=== PATIENT | female | born 2000 | race Caucasian/White ===

== ENCOUNTER 2021-10-30 03:04 | Emergency (ER) | payer OTHER ==
[2021-10-30 03:40] LABS: HEMOGLOBIN 13.6 gm/dl (12.3-15.3); RED BLOOD COUNT 4.75 M/UL (4.00-5.10); WHITE BLOOD COUNT 9.2 K/UL (4.5-11.0)
[2021-10-30 04:12] LABS: BUN/CREATININE RATIO 20 (0-10)
== END 2021-10-30 09:29 | disposition home or self-care (01) ==
LOC: ER1 03:04
PROVIDERS: Physician Assistant
DX: O99.891 Other specified diseases and conditions complicating pregnancy (principal); R31.9 Hematuria, unspecified; Z3A.01 Less than 8 weeks gestation of pregnancy; Z88.0 Allergy status to penicillin; Z88.2 Allergy status to sulfonamides
CPT/HCPCS: 76775; 76817; 80053; 81001; 84702; 84703; 85025; 87086; 96374; 99284; J2765

== ENCOUNTER 2021-11-10 10:44 | Emergency (ER) | payer SELFPAY ==
[2021-11-10 13:05] LABS: HEMOGLOBIN 13.4 gm/dl (12.3-15.3); RED BLOOD COUNT 4.69 M/UL (4.00-5.10); WHITE BLOOD COUNT 12.4 K/UL (4.5-11.0)
[2021-11-10 13:20] LABS: BUN/CREATININE RATIO 24 (0-10)
[2021-11-10] MEDS ORDERED: HYDROCODON-ACE1 EAC4 PO (17:33)
[2021-11-10] MEDS ORDERED: FLOMAX 0.4 MG0.4 MG PO (17:36)
[2021-11-10] MEDS ORDERED: ONDANSETRON ODT4 MG SL (17:36)
== END 2021-11-10 18:05 | disposition home or self-care (01) ==
LOC: ER1 10:44
PROVIDERS: Physician Assistant
DX: O23.01 Infections of kidney in pregnancy, first trimester (principal); N13.6 Pyonephrosis; Z3A.01 Less than 8 weeks gestation of pregnancy; Z91.040 Latex allergy status; Z88.0 Allergy status to penicillin; Z88.2 Allergy status to sulfonamides
CPT/HCPCS: 74018; 76775; 80053; 81001; 83690; 84702; 85025; 87086; 96374; 96375; 99284; J2270; J2405

== ENCOUNTER 2022-04-09 18:52 | Outpatient (CLI) | payer OTHER ==
[~2022-04-09 18:52] MED LIST: FLOMAX 0.4 MG0.4 MG PO; HYDROCODON-ACE1 EAC4 PO; ONDANSETRON ODT4 MG SL
== END 2022-04-09 22:44 | disposition home or self-care (01) ==
LOC: GENOP 18:52
DX: O99.891 Other specified diseases and conditions complicating pregnancy (principal); M54.50 Low back pain, unspecified; O47.03 False labor before 37 completed weeks of gestation, third trimester; Z3A.28 28 weeks gestation of pregnancy
CPT/HCPCS: 81001; 82731; G0463

== ENCOUNTER 2022-05-10 11:58 | Outpatient (CLI) | payer OTHER ==
[2022-05-10 13:01] LABS: HEMOGLOBIN 11.2 gm/dl (12.3-15.3); WHITE BLOOD COUNT 7.6 K/UL (4.5-11.0)
[2022-05-10 13:32] LABS: BUN/CREATININE RATIO 11 (0-10)
== END 2022-05-10 13:35 | disposition home or self-care (01) ==
LOC: GENOP 11:58
PROVIDERS: Obstetrics & Gynecology
DX: O99.891 Other specified diseases and conditions complicating pregnancy (principal); R10.9 Unspecified abdominal pain; R07.81 Pleurodynia; R19.7 Diarrhea, unspecified; Z3A.32 32 weeks gestation of pregnancy
CPT/HCPCS: 36415; 80053; 81001; 85025; G0463